=== PATIENT | male | born 1980 | race Hispanic/Latino ===

== ENCOUNTER 2020-11-25 18:36 | Emergency (ER) | payer SELFPAY ==
[2020-11-25 18:47] VITALS: BP 135/83; PULSE 62; RESP 16; TEMP 36.4; O2SAT 99
--- NOTE | 2020-11-25 19:17 | ED.LOWEXIN ---
HPI - Extremity Injury (Lower) General Chief Complaint: Extremity Injury, Lower Stated Complaint: Lower Leg Pain History of Present Illness HPI Narrative: This is a 40-year-old male comes in complaining of left calf pain states that it feels like it is burning in his left calf is been going on for the past couple of days patient states that he just got over Covid 2 weeks ago and tested negative for this this past Tuesday patient is here because he is worried about a blood clot Related Data Allergies Allergy/AdvReac Type Severity Reaction Status Date / Time No Known Allergies Allergy Unverified 09/13/19 09:55 Review of Systems Review of Systems: CONSTITUTIONAL: Denies fever, chills, or sweats. EYES: Denies visual changes, redness, or discharge. ENT: Denies rhinorrhea, congestion, sore throat, or otalgia. CARDIOVASCULAR:Denies chest pain, palpitations, or edema. RESPIRATORY: Denies cough or dyspnea. GASTROINTESTINAL: Denies abdominal pain, nausea, vomiting, or diarrhea. GENITOURINARY: Denies dysuria or hematuria. SKIN:[Denies rash or itching. MUSCULOSKELETAL:Denies back pain, joint pain, or myalgia. Left lower calf pain NEUROLOGIC: Denies headache, numbness, or weakness. PSYCHIATRIC:Denies anxiety or depression PMFSH Comments At time as signature, I have reviewed and agree with nursing past medical, social, surgical and family history. Please see nursing chart for further information. There is no relevant family history pertinent to the presenting complaint. Exam Narrative: GENERAL:Well-appearing, well-nourished, and in no acute distress. HEAD:Normocephalic, atraumatic. EYES: PERRLA and EOMI. ENT: Nares clear, no rhinorrhea or epistaxis. Mucous membranes moist. NECK: Supple. CHEST: Clear to auscultation. No respiratory distress. HEART: Regular rate and rhythm. No murmur heard. Normal peripheral pulses. ABDOMEN: Soft, nontender, nondistended, normal active bowel sounds. EXTREMITIES: Normal range of motion. No edema. Lower extremity pain burning, good sensation SKIN: Warm, dry, no rash. NEURO: No focal deficits. Alert and oriented x3. Course [employer] Physician Supervision Discussion had with patient about blood clots and hip about having numbness and tingling due to post Covid issues at this time I will order venous Doppler as an outpatient for results to be sent to his primary care doctor in diagnosis [place] code had been placed on his prescription patient also received phone number to call to schedule his outpatient appointment Vital Signs Vital signs: Vital Signs Temperature 97.6 F 11/25/20 18:47 Pulse Rate 62 11/25/20 18:47 Respiratory Rate 16 11/25/20 18:47 Blood Pressure 135/83 11/25/20 18:47 Pulse Oximetry 99 11/25/20 18:47 Temperature 97.6 F 11/25/20 18:47 Pulse Rate 62 11/25/20 18:47 Respiratory Rate 16 11/25/20 18:47 Blood Pressure 135/83 11/25/20 18:47 Pulse Oximetry 99 11/25/20 18:47 MDM - Extremity Injury (Lower) Differential Diagnosis Differential diagnosis: Likely ankle sprain and strain, acute internal derangement of knee, ankle fracture and other (calf pain, ) Discharge Plan Discharge Clinical Impression: Acute leg pain Qualifiers: Laterality: left Qualified Code(s): M79.605 - Pain in left leg Patient Disposition: Home, Self-Care Condition: Stable Instructions: Antibiotic Form, Leg Pain (ED) Additional Instructions: Ice to the area 20-30 minutes 4-6 times a day Elevate above heart Tylenol for lesser pain Ibuprofen regularly for the next 2-3 days for the inflammation Follow up with your primary care provider if the condition is not improving within 1 week or sooner if the condition worsens with numbness, tingling, decrease sensation with weakness to seek ER. Call hospital at [phone] for ultrasound appointment Patient Language: Wallisian Follow-up/Referrals: Alvaro,WILI Smith [Primary Care Provider] - Time of Disposition: 19:29
== END 2020-11-25 19:32 | disposition home or self-care (01) ==
PROVIDERS: Emergency Provider Nurse Practitioner Family; PCP Physician Assistant
DX: M79.605 Pain in left leg (principal)
CPT/HCPCS: 99212; G0463

== ENCOUNTER 2020-11-26 09:13 | Emergency (ER) | payer SELFPAY ==
--- NOTE | ~2020-11-26 | US_ITS ---
EXAMINATION: US venous doppler [facility] DATE: 11/26/2020 10:28 INDICATION: Left calf pain. TECHNIQUE: Grayscale ultrasound images without and with compression and Doppler ultrasound images of the left lower extremity veins were obtained. COMPARISON: None. FINDINGS: The visualized portions of left common femoral vein, profunda (deep) femoral vein, femoral vein, popl iteal vein, peroneal veins, posterior tibial veins, and greater saphenous vein outflow are patent. IMPRESSION: 1. No deep venous thrombosis. Reviewed, dictated and finalized at location B.
[2020-11-26 09:21] VITALS: BP 135/86; PULSE 73; RESP 16; TEMP 36.4; O2SAT 98
--- NOTE | 2020-11-26 09:47 | ED.GENADULT ---
HPI - General Adult General Chief complaint: Extremity Problem,Nontraumatic <Johnna Galvan PA-C - Last Filed: 11/26/20 10:46> Stated complaint: left calf pain <Johnna Galvan PA-C - Last Filed: 11/26/20 10:46> Time Seen by Provider: 11/26/20 09:42 <Johnna Galvan PA-C - Last Filed: 11/26/20 10:46> Source: patient <Johnna Galvan PA-C - Last Filed: 11/26/20 10:46> Mode of arrival: ambulatory <Johnna Galvan PA-C - Last Filed: 11/26/20 10:46> Limitations: no limitations <Johnna Galvan PA-C - Last Filed: 11/26/20 10:46> History of Present Illness HPI narrative: Patient is here for evaluation of left calf pain that started 2 days ago. He denies any trauma or recent activity that would cause such pain. It is worse when he stands for extended period of time or walks a long distance. There is no history of DVT in him or his family. He is recently recovered from Covid, he was + November 12. He denies any chest pain or shortness of breath. <Johnna Galvan PA-C - Last Filed: 11/26/20 10:46> Onset (ago): day(s) <Johnna Galvan PA-C - Last Filed: 11/26/20 10:46> Severity scale (1-10): 4 <Johnna Galvan PA-C - Last Filed: 11/26/20 10:46> Quality: aching (warm) <ANGELINA Schmitt Last Filed: 11/26/20 10:46> Relieving factors: rest <Johnna Galvan PA-C - Last Filed: 11/26/20 10:46> Exacerbating factors: movement <Johnna Galvan PA-C - Last Filed: 11/26/20 10:46> Associated symptoms: denies other symptoms <Johnna Galvan PA-C - Last Filed: 11/26/20 10:46> Treatments prior to arrival: NSAID (no relief) <Johnna Galvan PA-C - Last Filed: 11/26/20 10:46> Related Data Home medications: Home Medications Medication Instructions Recorded Confirmed atorvastatin 10 mg PO DAILY 11/26/20 11/26/20 sertraline [Zoloft] 25 mg PO DAILY 11/26/20 11/26/20 <Johnna Galvan PA-C - Last Filed: 11/26/20 10:46> Allergies/adverse reactions: Allergies Allergy/AdvReac Type Severity Reaction Status Date / Time No Known Allergies Allergy Unverified 11/26/20 09:31 <Johnna Galvan PA-C - Last Filed: 11/26/20 10:46> Review of Systems Review of Systems: All systems reviewed & are unremarkable except as noted in HPI and below <Johnna Galvan PA-C - Last Filed: 11/26/20 10:46> [facility] Social History Social History: Social History (Updated 11/26/20 @ 10:01 by Johnna Galvan PA-C) Smoking status: Never smoker Alcohol intake: never Substance use: never Occupation/Education: occupation Additional occupation/education comments: deliverer pharmacy <Johnna Galvan PA-C - Last Filed: 11/26/20 10:46> Exam Const: General: healthy appearing and no acute distress <Johnna Galvan PA-C - Last Filed: 11/26/20 10:46> Resp: Effort & Inspection: normal respiratory effort <Johnna Galvan PA-C - Last Filed: 11/26/20 10:46> Auscultation: clear to auscultation bilaterally <Johnna Galvan PA-C - Last Filed: 11/26/20 10:46> Cardio: Rate: regular rate <Johnna Galvan PA-C - Last Filed: 11/26/20 10:46> Rhythm: regular rhythm <Johnna Galvan PA-C - Last Filed: 11/26/20 10:46> Skin: General skin exam: normal color <Johnna Galvan PA-C - Last Filed: 11/26/20 10:46> Neuro: General: moves all extremities and no focal motor deficits <Johnna Galvan PA-C - Last Filed: 11/26/20 10:46> Extrem: General: normal to inspection and edema (slight in left LE) left <Johnna Galvan PA-C - Last Filed: 11/26/20 10:46> Left lower extremity: normal capillary refill and lower leg Details: tenderness (2+ pedal pulse) Location: of the posterior calf <Johnna Galvan PA-C - Last Filed: 11/26/20 10:46> Psych: Mental Status: mental status grossly normal <ANGELINA Schmitt Last Filed: 11/26/20 10:46> Course Course Emergency Course: Venous Doppler is negative. Results relayed to patient. Treat irene
[2020-11-26 11:05] VITALS: BP 118/81; PULSE 66; RESP 18; O2SAT 100
== END 2020-11-26 11:05 | disposition home or self-care (01) ==
PROVIDERS: Emergency Provider General Practice; PCP Physician Assistant
DX: S86.912A Strain of unspecified muscle(s) and tendon(s) at lower leg level, left leg, initial encounter (principal); Z86.16 Personal history of COVID-19; X58.XXXA Exposure to other specified factors, initial encounter
CPT/HCPCS: 93971; 99284